=== PATIENT | female | born 1935 | race Caucasian/White ===

== ENCOUNTER 2017-03-09 22:21 | Observation (INO) | payer MEDICARE ==
[~2017-03-09] VITALS: Ht 157.5 cm; Wt 66.2 kg
[2017-03-09] MEDS ORDERED: MORPHINE SULFATE 2 MG/ML DISP.SYRIN. IV/SQ PRN (22:45)
--- NOTE | 2017-03-09 22:49 | PHYS DOC ---
Past Medical History Past Medical History: CAD, Dementia, Hypertension Additional Past Medical Histor: Venita's CRI. Social History Narrative: [facility] Adult General Chief Complaint Chief Complaint: CHEST PAIN HPI HPI Patient is a 81 year old female who presents with chest pain. Patient resides at a longterm and EMS was called at 2130 p.m. Apparently chest pain started shortly before that. When they arrived she was having severe chest pain described as burning and midsternal. She is dosed with nitroglycerin 3 with no relief, Nitropaste and aspirin dosed by EMS. She arrives with pain improved but there is still some persistent pain. She does have significant dementia and Parkinson's but is able answer all of her questions here. Review of Systems Review of Systems Constitutional: Denies fever or chills Eyes: Denies change in visual acuity, redness, or eye pain HENT: Denies nasal congestion or sore throat Respiratory: Denies cough or shortness of breath Cardiovascular: see HPI GI: Denies abdominal pain, nausea, vomiting, bloody stools or diarrhea : Denies dysuria or hematuria Musculoskeletal: Denies back pain or joint pain Integument: Denies rash or skin lesions Neuro: No headache;no dizziness; no syncope. Current Medications Current Medications Current Medications Medications (Trade) Dose Ordered Sig/Cee Start Time Stop Time Status Last Admin Dose Admin Morphine Sulfate 2 mg PRN Q15MIN PRN 03/09/17 22:45 03/10/17 22:44 Allergies Allergies Allergies Coded Allergies Type Severity Reaction Last Updated Verified chocolate flavor Allergy Intermediate 03/09/17 Yes codeine Allergy Intermediate 03/09/17 Yes shellfish derived Allergy Intermediate 03/09/17 Yes Physical Exam Physical Exam Constitutional: Well developed, well nourished, no acute distress, non-toxic appearance. HENT: Normocephalic, atraumatic, bilateral external ears normal, oropharynx moist, no oral exudates, nose normal. Eyes: PERRLA, EOMI, conjunctiva normal, no discharge. Neck: Normal range of motion, no tenderness, supple, no stridor. Cardiovascular:Heart rate regular rhythm, no murmur Lungs & Thorax: Bilateral breath sounds clear to auscultation Abdomen: Bowel sounds normal, soft, no tenderness, no masses, no pulsatile masses. Skin: Warm, dry, no erythema, no rash. Back: No tenderness, no CVA tenderness. Extremities: No tenderness, no cyanosis, no clubbing, ROM intact, no edema. Neurologic: Alert and oriented X 2, normal motor function, normal sensory function, no focal deficits noted. Psychologic: Affect normal, judgement normal, mood normal. Current Patient Data Vital Signs Vital Signs Date Time Temp Pulse Resp B/P (MAP) Pulse Ox O2 Delivery O2 Flow Rate FiO2 03/10/17 01:00 52 155/72 (99) 99 Room Air 03/09/17 22:30 97.8 16 97.8 Lab Values Laboratory Tests Test 03/09/17 23:40 Prothrombin Time 13.1 SEC (11.7-14.0) Prothrombin Time INR 1.1 (0.8-1.1) D-Dimer (Rosamaria) 0.42 ug/mlFEU (0.00-0.50) Urine Collection Type U cath Urine Color Yellow Urine Clarity Clear Urine pH 7.0 Urine Specific [place] 1.015 Urine Protein Negative mg/dL (NEG-TRACE) Urine Glucose (UA) Negative mg/dL (NEG) Urine Ketones (Stick) Negative mg/dL (NEG) Urine Blood Negative (NEG) Urine Nitrite Negative (NEG) Urine Bilirubin Negative (NEG) Urine Urobilinogen Dipstick 0.2 mg/dL (0.2 mg/dL) Urine Leukocyte Esterase Negative (NEG) Urine RBC Occ /HPF (0-2) Urine WBC Occ /HPF (0-4) Urine Squamous Epithelial Cells Few /LPF Urine Bacteria Few /HPF (0-FEW) Total Bilirubin 0.4 mg/dL (0.2-1.0) Direct Bilirubin 0.1 mg/dL (0.0-0.2) Aspartate Amino Transferase (AST) 14 U/L (15-37) L Alanine Aminotransferase (ALT) 12 U/L (14-59) L Alkaline Phosphatase 69 U/L (46-116) Creatine Kinase 30 U/L (26-192) Creatine Kinase MB (Mass) 0.7 ng/mL (0.0-3.6) Creatine Kinase MB Relative Index % (0-4) KD-Clr-E-Type Natriuretic Peptide 395 pg/mL (0-449) Total Protein 6.6 g/dL (6.4-8.2) Albumin 3.6 g/dL (3.4-5.0) Laboratory Tests Test 03/09/17 23:40 Prothrombin Time 13.1 SEC Prothromb Time International Ratio 1.1 D-Dimer (Rosamaria) 0.42 ug/mlFEU Urine Collection Type U cath Urine Color Yellow Urine Clarity Clear Urine pH 7.0 Urine Specific [place] 1.015 Urine Protein Negative mg/dL Urine Glucose (UA) Negative mg/dL Urine Ketones (Stick) Negative mg/dL Urine Blood Negative Urine Nitrite Negative Urine Bilirubin Negative Urine Urobilinogen Dipstick 0.2 mg/dL Urine Leukocyte Esterase Negative Urine RBC Occ /HPF Urine WBC Occ /HPF Urine Squamous Epithelial Cells Few /LPF Urine Bacteria Few /HPF Total Bilirubin 0.4 mg/dL Direct Bilirubin 0.1 mg/dL Aspartate Amino Transf (AST/SGOT) 14 U/L Alanine Aminotransferase (ALT/SGPT) 12 U/L Alkaline Phosphatase 69 U/L Creatine Kinase 30 U/L Creatine Kinase MB (Mass) 0.7 ng/mL Creatine Kinase MB Relative Index % JK-Ynk-D-Type Natriuretic Peptide 395 pg/mL Total Protein 6.6 g/dL Albumin 3.6 g/dL Current Medications Medications (Trade) Dose Ordered Sig/Cee Route PRN Reason Start Time Stop Time Status Last Admin Dose Admin Morphine Sulfate 2 mg PRN Q15MIN PRN IV/SQ PAIN GREATER THAN 3/10 03/09/17 22:45 03/10/17 22:44 EKG EKG EKG by my interpretation at 2227PM: NSR rate 52, non specific ST changes. Leftward axis Radiology/Procedures Radiology/Procedures CXR: my interpretation. No acute infiltrate; normal mediastinum Course & Med Decision Making Course & Med Decision Making Pertinent Labs and Imaging studies reviewed. (See chart for details) Evaluated patient upon arrival. Initially no records from [place] which were then obtained later. Patient is followed by Dr berenice Arrington. She has known CAD. 005 AM: BP 156/70, P 55. Spoke w family. Will admit to r/o. Patient has not had chest pain complaint for quite some time. Dragon Disclaimer Dragon Disclaimer This electronic medical record was generated, in whole or in part, using a voice recognition dictation system. Departure Departure Impression: Primary Impression: Chest pain Additional Impression: Coronary artery disease Disposition: ADMITTED INPATIENT Admitting Physician: Filiberto Olivarez Condition: STABLE Problem Qualifiers SRIDHAR GUILLERMO MD March 09, 2017 22:49
[2017-03-09 23:53] LABS: BILIRUBIN,URINE NEGATIVE (NEG); GLUCOSE,URINE NEGATIVE (NEG); NITRITE,URINE NEGATIVE (NEG); PROTEIN,URINE NEGATIVE (NEG-TRACE); UROBILINOGEN,URINE 0.2 mg/dL (0.2 mg/dL)
[2017-03-10 00:02] LABS: INR 1.1 (0.8-1.1); PROTHROMBIN TIME PATIENT 13.1 SEC (11.7-14.0)
[2017-03-10 00:04] LABS: RBC,URINE OCC /HPF (0-2); WBC,URINE OCC /HPF (0-4)
[2017-03-10 00:05] LABS: BACTERIA,URINE FEW /HPF (0-FEW); SQUAMOUS EPITHELIAL CELL,UR FEW /LPF
[2017-03-10 00:12] LABS: ALBUMIN 3.6 g/dL (3.4-5.0); DIRECT BILIRUBIN 0.1 mg/dL (0.0-0.2); TOTAL BILIRUBIN 0.4 mg/dL (0.2-1.0); TOTAL PROTEIN 6.6 g/dL (6.4-8.2)
[2017-03-10 00:21] LABS: CKMB MASS 0.7 ng/mL (0.0-3.6); CREATINE KINASE 30 U/L (26-192)
[2017-03-10] MEDS ORDERED: ONDANSETRON PF 4 MG/2 ML VIAL. IV PRN (02:15)
[2017-03-10] MEDS ORDERED: MORPHINE SULFATE 2 MG/ML DISP.SYRIN. IV PRN (02:15)
[2017-03-10] MEDS ORDERED: NITROGLYCERIN OINT 1 GM PACKET. TP ONE (02:30)
[2017-03-10] MEDS ORDERED: CLOP75TA PO (06:24)
[2017-03-10] MEDS ORDERED: ASPI81TA2 PO (06:24)
[2017-03-10] MEDS ORDERED: TRAM50TA PO (06:24)
[2017-03-10] MEDS ORDERED: POTASSIUM CHLO10 MEQ PO (06:24)
[2017-03-10] MEDS ORDERED: CARB1TAB2 PO (06:24)
[2017-03-10] MEDS ORDERED: TIZA2CAP PO (06:24)
[2017-03-10] MEDS ORDERED: OXYC-323 PO (06:24)
[2017-03-10] MEDS ORDERED: ACET325T16 PO (06:24)
[2017-03-10] MEDS ORDERED: ATOR20TA58 PO (06:24)
[2017-03-10] MEDS ORDERED: FURO-69 PO (06:24)
[2017-03-10] MEDS ORDERED: LEVO125T5 PO (06:24)
[2017-03-10] MEDS ORDERED: POLY17PO3 PO (06:24)
[2017-03-10] MEDS ORDERED: NAPR375T3 PO (06:24)
[2017-03-10] MEDS ORDERED: NITR0.4T SL (06:24)
[2017-03-10] MEDS ORDERED: MAGN400O4 PO (06:24)
[2017-03-10] MEDS ORDERED: METO25TA9 PO (06:24)
[2017-03-10] MEDS ORDERED: ALPR0.254 PO (06:24)
[2017-03-10 07:00] VITALS: BP 134/62
--- NOTE | 2017-03-10 07:41 | EKG ---
[facility] [address] [place] [address] Test Date: 2017-03-09 Test Time: 22:27:20 Pat Name: TONNY JAY Department: Room: 260 1 Gender: F Tour Counselor: NIKKO : 1935 Requested By: SRIDHAR GUILLERMO Order Number: [id number] Reading MD: Tameka Campa Measurements Intervals [place] Rate: 52 P: 41 UT: 170 QRS: -28 QRSD: 98 T: 37 QT: 416 QTc: 392 Interpretive Statements SINUS RHYTHM LEFTWARD AXIS QRS(T) CONTOUR ABNORMALITY CONSIDER ANTEROSEPTAL MYOCARDIAL DAMAGE RI6.01 Unconfirmed report No previous ECG available for comparison Electronically Signed On 03-13-2017 14:59:34 CDT by Tameka Campa
--- NOTE | 2017-03-10 08:01 | RAD ---
Indication chest pain. A single view of the chest was obtained. No prior imaging is available. The heart and pulmonary vessels appear normal. The lungs are clear. There is no pleural fluid or pneumothorax. Bony structures appear grossly intact. Cardiac stent is noted IMPRESSION: No acute or focal process seen in the chest
[2017-03-10 09:00] LABS: POTASSIUM ISTAT 4.3 mmol/L (3.5-5.0)
--- NOTE | 2017-03-10 09:14 | PDOC2 ---
ELIZABETH AMARAL SALES PROMOTION OFFICER 03/10/17 0914: CARDIAC CONSULT DATE OF CONSULT Date of Consult DATE: 03/10/17 TIME: 09:08 REASON FOR CONSULT Reason for Consult: Chest pain, known CAD REFERRING PHYSICIAN Referring Physician: Alek SOURCE Source: Caregiver (sons), Chart review HISTORY OF PRESENT ILLNESS HISTORY OF PRESENT ILLNESS This is a pleasant 81 yo female admitted for complains of burning midchest pain. [facility] [place] [facility] Presently pt. shows no dyspnea with ambulation and not having any chest pain. Pt is pleasantly confused which appears to be her baseline and cooperative. Per staff there was no notation of palpitations, SOA but just burning mid chest pain. No dizziness or notation of nausea. Questionable for CAD as sons could not confirm. No prior VTE, falls, or any recent injury. PAST MEDICAL HISTORY Cardiovascular: CAD (?), HTN, Hyperlipidemia Pulmonary: Other (No pertinent history) CENTRAL NERVOUS SYSTEM: Dementia, Other (parkinsons) GI: No pertinent hx Heme/Onc: No pertinent hx Hepatobiliary: No pertinent hx Psych: Anxiety, Depression Musculoskeletal: Osteoarthritis Rheumatologic: No pertinent hx Infectious disease: No pertinent hx ENT: No pertinent hx Renal/: Urinary Incontinence Endocrine: Hypothyroidism Dermatology: No pertinent hx PAST SURGICAL HISTORY Past Surgical History: Appendectomy, Cholecystectomy, (x3), Hysterectomy, Other (PCI/stents) FAMILY HISTORY Family History noncontributory to age SOCIAL HISTORY Smoke: No ALCOHOL: none Drugs: None Lives: Snf ALLERGIES ALLERGIES: Coded Allergies: chocolate flavor (Verified Allergy, Intermediate, 03/09/17) codeine (Verified Allergy, Intermediate, 03/09/17) shellfish derived (Verified Allergy, Intermediate, 03/09/17) ROS Review of System limited due to confusion, see HPI PHYSICAL EXAM General: Alert, Cooperative, No acute distress HEENT: Atraumatic, Mucous membr. moist/pink Lungs: Clear to auscultation, Normal air movement Heart: Regular rate (SR), Normal S1, Normal S2, Other (3/6 diastolic murmur to ED border) Abdomen: Soft, No tenderness Extremities: No cyanosis, Other (trace to 1+ bilateral LE pitting edema) Skin: No breakdown, No significant lesion Neuro: Normal speech, Sensation intact Psych/Mental Status: Mood NL, Other (pleasantly confused) MUSCULOSKELETAL: Osteoarthritic changes both hands, Other (ataxia) VITALS VITALS Vital Signs Date Time Temp Pulse Resp B/P (MAP) Pulse Ox O2 Delivery O2 Flow Rate FiO2 03/10/17 08:00 Room Air 03/10/17 07:00 97.5 55 20 134/62 (86) 97 97.5 LABS Lab: Laboratory Tests Test 03/09/17 23:40 03/09/17 23:41 03/10/17 07:15 Prothrombin Time 13.1 SEC (11.7-14.0) Prothromb Time International Ratio 1.1 (0.8-1.1) D-Dimer (Rosamaria) 0.42 ug/mlFEU (0.00-0.50) Urine Collection Type U cath Urine Color Yellow Urine Clarity Clear Urine pH 7.0 Urine Specific [place] 1.015 Urine Protein Negative mg/dL (NEG-TRACE) Urine Glucose (UA) Negative mg/dL (NEG) Urine Ketones (Stick) Negative mg/dL (NEG) Urine Blood Negative (NEG) Urine Nitrite Negative (NEG) Urine Bilirubin Negative (NEG) Urine Urobilinogen Dipstick 0.2 mg/dL (0.2 mg/dL) Urine Leukocyte Esterase Negative (NEG) Urine RBC Occ /HPF (0-2) Urine WBC Occ /HPF (0-4) Urine Squamous Epithelial Cells Few /LPF Urine Bacteria Few /HPF (0-FEW) Total Bilirubin 0.4 mg/dL (0.2-1.0) Direct Bilirubin 0.1 mg/dL (0.0-0.2) Aspartate Amino Transf (AST/SGOT) 14 U/L (15-37) Alanine Aminotransferase (ALT/SGPT) 12 U/L (14-59) Alkaline Phosphatase 69 U/L (46-116) Creatine Kinase 30 U/L (26-192) Creatine Kinase MB (Mass) 0.7 ng/mL (0.0-3.6) Creatine Kinase MB Relative Index % (0-4) Bedside Troponin I 0.00 ng/ml (<0.08) EV-Hft-K-Type Natriuretic Peptide 395 pg/mL (0-449) Total Protein 6.6 g/dL (6.4-8.2) Albumin 3.6 g/dL (3.4-5.0) Bedside Hemoglobin 10.9 g/dL (12-15) Bedside Hematocrit 32 % (36-40) Bedside Sodium 139 mmol/L (135-145) Bedside Potassium 4.3 mmol/L (3.5-5.0) Bedside Chloride 106 mmol/L (98-110) Bedside Total CO2 25 mmol/L (23-32) Anion Gap 13 mmol/L (6-14) Bedside Blood Urea Nitrogen 26 mg/dL (8-26) Bedside Creatinine 0.7 mg/dL (0.5-1.4) Glucose Level 118 mg/dL (70-99) Bedside Ionized Calcium ([place]) 1.17 mmol/L (1.13-1.32) Troponin I Quantitative < 0.017 ng/mL (0.000-0.055) ASSESSMENT/PLAN ASSESSMENT/PLAN 1. Atypical chest pain: troponin normal, EKG SR with LAFB no acute changes. Doubt ACS. No recurrent CP, likely GERD 2. ?CAD: unknown for PCI/stent Carlyle [place] (DPOA) could not confirm but highly likely with noted ASA/plavix on home meds 3. HTN: initially labile then controlled 4. HLP 5. Hypothyroidism 6. 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 GERD exacerbation: Currently on bid dosing of NSAID, defer to PCP. 9. Asymptomatic SB: lowest at 40 Recommendations 1. Preliminary TTE with normal wall motion and EF. No recurrent CP, Will start on PPI. No stress test. 2. Continuie with secondary prevention 3. Pt is a DNR per son. Advanced age, parkinsons and dementia. Discussed with DPOA in regards to treatment/diagnostic options and this time he would like to continue with conservative measures 4. Will optimize her secondary prevention measures. 5. CBC, TSH, lipids. 6. On low dose [facility] at [facility] and will DC due to bradycardia. Caution with opioid and tizanidine as these will accentuate bradycardia. Will start on norvasc. Will maintain BP at high end of normal. Problems: GAYLA ZAVALA MD 03/11/17 5194: CARDIAC CONSULT ALLERGIES ALLERGIES: Coded Allergies: chocolate flavor (Verified Allergy, Intermediate, 03/09/17) codeine (Verified Allergy, Intermediate, 03/09/17) shellfish derived (Verified Allergy, Intermediate, 03/09/17) ASSESSMENT/PLAN ASSESSMENT/PLAN Patient seen and examined 03/10/17. Agree with FINE GRADE OPERATOR's assessment and plan. Chest pain with atypical features and most probably secondary to GI etiology. 2-D echo showed normal LV systolic function without any regional wall motion abnormalities. Agree with proton pump inhibitors. Thank you for your consultation. Problems: ELIZABETH AMARAL APRN March 10, 2017 09:14 GAYLA ZAVALA MD March 11, 2017 15:19
[2017-03-10 09:41] LABS: BASO # 0.1 x10^3/uL (0.0-0.2); BASO % 1 % (0-3); EOS % 11 % (0-3); HEMATOCRIT 32.2 % (36.0-47.0); LYMPH # 1.2 x10^3/uL (1.0-4.8); LYMPH % 20 % (24-48); MEAN CORPUSCULAR HEMOGLOBIN 30 pg (25-35); MEAN CORPUSCULAR HGB CONC 34 g/dL (31-37); MEAN CORPUSCULAR VOLUME 87 fL (79-100); MONO % 11 % (0-9); NEUT % 58 % (31-73); PLATELET COUNT 194 x10^3/uL (140-400); RED CELL DISTRIBUTION WIDTH 12.8 % (11.5-14.5); WHITE BLOOD COUNT 6.1 x10^3/uL (4.0-11.0)
[2017-03-10 09:47] LABS: CREATININE 0.8 mg/dL (0.6-1.0); GFR 68.8; MAGNESIUM 2.1 mg/dL (1.8-2.4); POTASSIUM 4.2 mmol/L (3.5-5.1)
[2017-03-10 09:49] LABS: CHOLESTEROL/HDL RATIO 2.4
--- NOTE | 2017-03-10 10:32 | CARD ---
APPROVED REPORT EXAM: Two-dimensional and M-mode echocardiogram with Doppler and color Doppler. Other Information Quality : Average Rhythm : Bradycardia INDICATION Cardiac Disease: CAD Chest Pain 2D DIMENSIONS Left Atrium(2D)2.7 (1.6-4.0cm)IVSd1.1 (0.7-1.1cm) Aortic Root(2D)2.6 (2.0-3.7cm)LVDd3.9 (3.9-5.9cm) LVOT Diameter2.0 (1.8-2.4cm)PWd1.1 (0.7-1.1cm) LVDs2.3 (2.5-4.0cm)FS (%) 31.8 % SV47.7 mlLVEF(%)63.4 (>50%) Aortic Valve AoV Peak Roberto.150.7cm/sAoV VTI32.2cm AO Peak GR.9.1mmHgLVOT Peak Roberto.113.9cm/s LVOT VTI 29.66cmAO Mean GR.4mmHg CRISTINA (VMAX)2.66iu9XOI (VTI)2.99cm2 AI P 1/2 Lvma812in Mitral Valve MV E Ihuzrtmt854.5cm/sMV DECEL HPFO716ey MV A Melctjzy928.7cm/sMV E Mean Gr.2mmHg MV BKP92rhL/A Ratio0.9 MV A Bbmmgutg540cfMMR (PHT)3.13cm2 TDI E/Lateral E'10.3E/Medial E'11.0 Pulmonary Valve PV Peak Qfrlufbb86.0cm/sPV Peak Grad.4mmHg Tricuspid Valve TR P. Amgqywal606ld/sRAP ZSHFWXHZ4pjVg TR Peak Gr.35ypMbVYQK19owPv Pulmonary Vein S1 Ejstqxsa18.0cm/sD2 Qmdvgail49.4cm/s LEFT VENTRICLE The left ventricle is normal size. There is normal left ventricular wall thickness. Left ventricle sy stolic function is normal. The Ejection Fraction is 60-65%. There is normal LV segmental wall motion. The left ventricular diastolic function and filling is normal for age. There is no ventricular septa l defect visualized. RIGHT VENTRICLE The right ventricle is normal size. The right ventricular systolic function is normal. ATRIA The left atrium size is normal. The right atrium size is normal. The interatrial septum is intact wit h no evidence for an atrial septal defect or patent foramen ovale as noted on 2-D or Doppler imaging. AORTIC VALVE The aortic valve is not well visualized but appears calcified. The aortic valve is trileaflet. Dopple r and Color Flow revealed mild to moderate aortic regurgitation. There is no significant aortic valvu lar stenosis. MITRAL VALVE The mitral valve is normal in structure and function. There is no mitral valve stenosis. Doppler and Color Flow revealed no mitral valve regurgitation noted. TRICUSPID VALVE The tricuspid valve is normal in structure and function. Doppler and Color Flow revealed trace to mil d tricuspid regurgitation. The PA pressure was estimated at 26 mmHg. There is no tricuspid valve sten osis. PULMONIC VALVE The pulmonic valve is not well visualized. Doppler and Color Flow revealed no pulmonic valvular regur gitation. There is no pulmonic valvular stenosis. GREAT VESSELS The aortic root is normal in size. Normal pulmonary venous flow (Doppler). The IVC is normal in size and collapses >50% with inspiration. PERICARDIAL EFFUSION There is no evidence of significant pericardial effusion. Critical Notification Critical Value: No <Conclusion> Left ventricle systolic function is normal. The Ejection Fraction is 60-65%. There is normal LV segmental wall motion. Mild to moderate aortic regurgitation. Trace to mild tricuspid regurgitation. The PA pressure was estimated at 26 mmHg. There is no evidence of significant pericardial effusion.
[2017-03-10 11:00] VITALS: BP 162/59
[2017-03-10] MEDS ORDERED: amLODIPine BESYLATE 5 MG TABLET PO SCH (11:30)
[2017-03-10] MEDS: PANTOPRAZOLE 40 MG TABLET.DR. PO SCH (12:43)
--- NOTE | 2017-03-10 14:42 | HP ---
ADMIT DATE: 03/10/2017 CHIEF COMPLAINT: Chest pain. HISTORY OF PRESENT ILLNESS: The patient is a pleasant 81-year-old female who presents with chest pain. She has dementia, too, so we are not really clear how bad the pain is. She states it is a kind of aching in her chest. She apparently received some nitroglycerin 3 times, but that did not seem to help. I have discussed the case with ER physician. We are going to admit the patient for cardiac workup and consultation with Cardiology. PAST MEDICAL HISTORY: Coronary artery disease, dementia, hypertension, Parkinson's, and chronic renal insufficiency. ALLERGIES: ____, CODEINE, AND SHELLFISH. FAMILY HISTORY: Coronary artery disease. SOCIAL HISTORY: She does not drink, smoke, or take drugs. MEDICATIONS: Reviewed. Please refer to the MRAD. REVIEW OF SYSTEMS: Unobtainable as the patient has dementia. PHYSICAL EXAMINATION: VITAL SIGNS: Temperature afebrile, pulse 62, respirations 18, and blood pressure 144/67. GENERAL: She is alert, but weak. She is walking with a walker. She has very little memory. HEART: Distant S1, S2. LUNGS: Clear. ABDOMEN: Soft, positive bowel sounds. EXTREMITIES: Trace edema. SKIN: No rashes. ENDOCRINE: No thyromegaly. LYMPHATICS: No cervical nodes. HEMATOPOIETIC: No bruising. LABORATORY DATA: White count 6, hemoglobin 11, and platelets 194. Electrolytes are normal. Troponin is 0. TSH is a little low at 3.04. EKG shows sinus rhythm. Chest x-ray results are pending. ASSESSMENT AND PLAN: Chest pain, rule out coronary disease. The patient has been admitted. We will check serial enzymes, serial EKGs, Consult cardiology, cardiac monitoring, home medications. Regarding her slightly low TSH, she is on Synthroid at 125 a day. Since it is only slightly off, I think I am going to continue with the same dose for now, but if she has symptoms, we would consider decreasing it long-term. PROGNOSIS: Guarded. EVELYN DIAZ DO DR: AMARI/vadim JOB#: [id number] / [id number]
[2017-03-10 15:00] VITALS: BP 151/56
[2017-03-10] MEDS: FUROSEMIDE 20 MG TABLET PO SCH (16:19)
[2017-03-10] MEDS: CLOPIDOGREL BISULFATE 75 MG TABLET PO SCH (16:19)
[2017-03-10] MEDS: ASPIRIN CHEWABLE 81 MG TABLET. PO SCH (16:19)
[2017-03-10 19:50] VITALS: BP 159/70
[2017-03-10] MEDS: ALPRAZolam 0.25 MG TABLET PO SCH (20:09)
[2017-03-10] MEDS ORDERED: ATORVASTATIN CALCIUM 20 MG TABLET PO SCH (21:00)
[2017-03-10 23:28] VITALS: BP 156/66
[2017-03-11 03:38] VITALS: BP 144/65
[2017-03-11 07:57] VITALS: BP 157/70
[2017-03-11] MEDS: ALPRAZolam 0.25 MG TABLET PO SCH (09:00)
[2017-03-11] MEDS ORDERED: amLODIPine BESYLATE 5 MG TABLET PO SCH ×2 (09:00)
[2017-03-11] MEDS: PANTOPRAZOLE 40 MG TABLET.DR. PO SCH (10:46)
[2017-03-11] MEDS: FUROSEMIDE 20 MG TABLET PO SCH (10:46)
[2017-03-11] MEDS: CLOPIDOGREL BISULFATE 75 MG TABLET PO SCH (10:46)
[2017-03-11] MEDS: ASPIRIN CHEWABLE 81 MG TABLET. PO SCH (10:46)
[2017-03-11 11:00] VITALS: BP 123/48
--- NOTE | 2017-03-11 11:34 | PDOC ---
CARDIO Progress Notes Date and Time Date of Service 03/11/2017 Time of Evaluation 0930 Subjective Subjective: No Chest Pain, No shortness of breath, No Palpitations, No Dizziness Vitals Vitals Vital Signs Date Time Temp Pulse Resp B/P (MAP) Pulse Ox O2 Delivery O2 Flow Rate FiO2 03/11/17 10:47 71 157/70 03/11/17 07:57 98.1 16 97 Room Air 98.1 Weight Weight [ ] Input and Output Intake and Output Intake and Output 03/11/17 07:00 Intake Total 400 ml Output Total 750 ml Balance -350 ml Intake Oral 400 ml Output Urine Total 750 ml # Voids 3 Laboratory Labs Laboratory Tests Test 03/10/17 14:25 Troponin I Quantitative < 0.017 ng/mL (0.000-0.055) Physical Exam HEENT: Neck Supple W Full Motion Chest: Symmetric LUNGS: Clear to Auscultation Heart: S1S2, RRR (SR) Abdomen: Soft N/T Extremities: No Calf Tenderness Neurology: alert, follow commands, other (Oriented to self and place) Assessment Assessment 1. Atypical chest pain: Troponin series normal. TTE with normal wall motion and EF. No recurrent CP, likely GERD 2. ?CAD: unknown for PCI/stent per sons but high suspicion with noted home ASA and plavix. 3. HTN: controlled 4. HLP: controlled 5. Hypothyroidism: TSH 0.3 6. Possibly Advanced Parkinsons (diagnosed 10 yrs ago) with dementia 7. Mild to mod AI 8. GERD exacerbation: on PPI 9. Asymptomatic SB: lowest at 40. NO further episodes when low dose toprol stopped. Recommendations 1. Pt is a DNR per son. Advanced age, parkinsons and dementia. Discussed with DPOA in regards to treatment/diagnostic options and this time he would like to continue with conservative measures 2. Continue with secondary prevention. Continue norvasc. 3. Caution with opioid and tizanidine as these will accentuate bradycardia. 4. F/U in office in 4-6 weeks. ELIZABETH AMARAL APRN March 11, 2017 11:34
--- NOTE | 2017-03-12 00:03 | DS ---
DATE OF DISCHARGE: 03/11/2017 ADMISSION DIAGNOSES: Chest pain and accelerated hypertension. DISCHARGE DIAGNOSES: Resolving chest pain, suspect gastroesophageal reflux disease, resolving accelerated hypertension. HOSPITAL COURSE: The patient is a pleasant 81-year-old female who presented with accelerated hypertension, GERD and possible angina. She was admitted. We got her pressures under control with consult to Cardiology. Her enzymes were negative. The pain may improve [facility] DISPOSITION: longterm. ACTIVITY: As tolerated. DIET: Low sodium. MEDICATIONS: Please see the MRAD. TOTAL TIME: 31 minutes. LILAL Suzanne DIAZ DO DR: AMARI/vadim JOB#: [id number] / [id number]
== END 2017-03-11 14:45 ==
LOC: ER 22:21 → 2 SOUTH 03-10 01:00
PROVIDERS: ADMIT Internal Medicine; ATTEND Internal Medicine
DX: R07.89 Other chest pain (principal); I12.9 Hypertensive chronic kidney disease with stage 1 through stage 4 chronic kidney disease, or unspecified chronic kidney disease; N18.9 Chronic kidney disease, unspecified; G20 Parkinson's disease; I35.1 Nonrheumatic aortic (valve) insufficiency; K21.9 Gastro-esophageal reflux disease without esophagitis; I25.10 Atherosclerotic heart disease of native coronary artery without angina pectoris; F03.90 Unspecified dementia, unspecified severity, without behavioral disturbance, psychotic disturbance, mood disturbance, and anxiety; E78.5 Hyperlipidemia, unspecified; R00.1 Bradycardia, unspecified; M19.90 Unspecified osteoarthritis, unspecified site; E03.9 Hypothyroidism, unspecified; Z82.49 Family history of ischemic heart disease and other diseases of the circulatory system
CPT/HCPCS: 36415; 71010; 80047; 80048; 80061; 80076; 81001; 82553; 83735; 83880; 84443; 84484; 85027; 85379; 85610; 93005; 93306; 96374; 96375; 99285; G0378; J2270; J2405; G0379